=== PATIENT | female | born 1985 ===

== ENCOUNTER 2021-06-06 12:45 | Outpatient (CLI) | payer OTHER | END 2021-06-06 14:19 | disposition home or self-care (01) | LOC: PRENATAL 12:45 | PROVIDERS: ATTEND Obstetrics & Gynecology Maternal & Fetal Medicine | DX: O35.0XX0 Maternal care for (suspected) central nervous system malformation in fetus, not applicable or unspecified (principal); O35.3XX0 Maternal care for (suspected) damage to fetus from viral disease in mother, not applicable or unspecified; Z3A.26 26 weeks gestation of pregnancy ==

== ENCOUNTER 2021-08-22 10:39 | Outpatient (CLI) | payer OTHER | END 2021-08-22 11:45 | disposition home or self-care (01) | LOC: PRENATAL 10:39 | PROVIDERS: ATTEND Obstetrics & Gynecology Maternal & Fetal Medicine | DX: O26.849 Uterine size-date discrepancy, unspecified trimester (principal); O36.8199 Decreased fetal movements, unspecified trimester, other fetus; O35.0XX0 Maternal care for (suspected) central nervous system malformation in fetus, not applicable or unspecified; Z91.013 Allergy to seafood; Z3A.37 37 weeks gestation of pregnancy ==

== ENCOUNTER 2021-08-29 13:15 | Inpatient (IN) | payer OTHER ==
[~2021-08-29] VITALS: Ht 157.5 cm; Wt 68.0 kg
[2021-09-04] MEDS ORDERED: PRENATAL TABLE1 EAC3 (17:38)
[2021-09-08] MEDS ORDERED: NAPR500T14 PO (12:05)
== END 2021-09-08 12:24 | disposition home or self-care (01) | DRG 807 ==
LOC: LDR 09-04 16:00 → OB/GYN 09-04 16:00
PROVIDERS: ADMIT Obstetrics & Gynecology; ATTEND Obstetrics & Gynecology
PROC: 4A1HXCZ Monitoring of Products of Conception, Cardiac Rate, External Approach (ICD-10-PCS; 2021-09-04)
PROC: 10E0XZZ Delivery of Products of Conception, External Approach (ICD-10-PCS; principal; 2021-09-06)
PROC: 0KQM0ZZ Repair Perineum Muscle, Open Approach (ICD-10-PCS; 2021-09-06)
DX: O70.1 Second degree perineal laceration during delivery (principal); Z37.0 Single live birth; Z3A.39 39 weeks gestation of pregnancy; Z20.822 Contact with and (suspected) exposure to COVID-19

== ENCOUNTER 2021-09-10 10:38 | Emergency (ER) | payer OTHER ==
[~2021-09-10] VITALS: Ht 162.6 cm; Wt 63.0 kg
[~2021-09-10 10:38] MED LIST: NAPR500T14 PO; PRENATAL TABLE1 EAC3
== END 2021-09-10 13:14 | disposition home or self-care (01) ==
LOC: ER 10:38
DX: O90.1 Disruption of perineal obstetric wound (principal); Z91.013 Allergy to seafood